=== PATIENT | female | born 1990 | race Two or more races ===

== ENCOUNTER 2019-07-18 00:31 | Emergency (ER) | payer SELFPAY ==
[2019-07-18 01:22] LABS: ABSOLUTE MONOCYTES (AUTO) 0.1 10^3/uL (0.1-1.4); ABSOLUTE NEUT (AUTO) 4.8 10^3/uL (1.7-8.2); BASOPHILS % (AUTO) 0.5 % (0-2); EOSINOPHILS % (AUTO) 0.8 % (0-6); HEMATOCRIT 39.3 % (36.0-47.0); HEMOGLOBIN 13.7 g/dL (12.0-15.5); LYMPHOCYTES % (AUTO) 16.9 % (13-45); MEAN CORPUSCULAR HEMOGLOBIN 29.4 pg (27.0-33.4); MEAN CORPUSCULAR HGB CONC 34.9 g/dL (32.0-36.0); MEAN CORPUSCULAR VOLUME 84 fl (80-97); MONOCYTES % (AUTO) 1.3 % (3-13); PLATELET COUNT 237 10^3/uL (150-450); RED BLOOD COUNT 4.65 10^6/uL (3.72-5.28); RED CELL DISTRIBUTION WIDTH 12.2 % (11.5-14.0); SEGMENTED NEUTROPHILS % (AUTO) 80.5 % (42-78); TOTAL CELLS COUNTED % (AUTO) 100 %
[2019-07-18 01:41] LABS: ALBUMIN 4.3 g/dL (3.5-5.0); ALKALINE PHOSPHATASE 73 U/L (38-126); ANION GAP 11 (5-19); ASPARTATE AMINO TRANSFERASE 27 U/L (14-36); BILIRUBIN,TOTAL 0.5 mg/dL (0.2-1.3); BLOOD UREA NITROGEN 20 mg/dL (7-20); CALCIUM 9.7 mg/dL (8.4-10.2); CARBON DIOXIDE 25 mmol/L (22-30); CHLORIDE 103 mmol/L (98-107); GLUCOSE 134 mg/dL (75-110); POTASSIUM 3.8 mmol/L (3.6-5.0); TOTAL PROTEIN 7.1 g/dL (6.3-8.2)
[2019-07-18 04:12] LABS: APPEARANCE,URINE SLIGHTLY-CLOUDY; BILIRUBIN,URINE NEGATIVE (NEGATIVE); COLOR,URINE YELLOW; GLUCOSE, URINE NEGATIVE (NEGATIVE); KETONES,URINE NEGATIVE (NEGATIVE); LEUKOCYTE ESTERASE,URINE TRACE (NEGATIVE); NITRITE,URINE NEGATIVE (NEGATIVE); PROTEIN,URINE NEGATIVE (NEGATIVE); URINE SPECIFIC GRAVITY 1.024
[2019-07-18] MEDS ORDERED: ACETAMINOPHEN 325 MG TABLET PO ONE (04:21)
[2019-07-18 04:30] VITALS: BP 105/68
[2019-07-18 04:50] LABS: A TYPE INFLUENZA AG NEGATIVE (NEGATIVE); B INFLUENZA AG NEGATIVE (NEGATIVE)
[2019-07-18] MEDS ORDERED: IBUPROFEN 600 MG TABLET PO ONE (06:28)
[2019-07-18] MEDS ORDERED: CEPHALEXIN 500 MG CAPSULE PO ONE (06:28)
--- NOTE | 2019-07-18 13:18 | ER Document Report ---
Entered by HARPAL COPE SCRIBE 07/18/19 0618 Acting as scribe for:ANTELMO MCMAHON MD ED General - General Chief Complaint: Pain All Over Stated Complaint: PAIN ALL OVER Time Seen by Provider: 07/18/19 06:15 Mode of Arrival: Ambulatory Information source: Patient Notes: This 29 year old female patient presents to the ED today with complaints of sudden onset shakes and chills that began around 12:00 AM this morning after getting off work. Patient states "it feels like my hips are being pushed together", making it hard to walk to her car. Patient states that she was fine all day while at work and went out to eat afterwards when the symptoms just hit her. Patient states that she took 2 ASA at work and then drove home when she started to feel nauseous and dizzy so she decided to come to the ED. Patient reports shortness of breath, headache, and x2 episodes of vomiting upon arrival to the ED. Patient denies burning with urination, cough, or abdominal pain. 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 - Related Data Allergies/Adverse Reactions: No Known Allergies Allergy (Verified 07/18/19 00:53) Past Medical History - General Information source: Patient - Social History Smoking Status: Never Smoker Cigarette use (# per day): No Chew tobacco use (# tins/day): No Smoking Education Provided: No Frequency of alcohol use: None Drug Abuse: None Occupation: Stamp Press Operator/Behavioral Health Case Manager Lives with: Parents Family History: Reviewed & Not Pertinent Patient has suicidal ideation: No Patient has homicidal ideation: No Review of Systems - Review of Systems Constitutional: See HPI, Chills EENT: No symptoms reported Cardiovascular: See HPI, Dizziness Respiratory: See HPI, Short of breath. denies: Cough Gastrointestinal: See HPI, Nausea, Vomiting. denies: Abdominal pain Genitourinary: See HPI. denies: Burning Female Genitourinary: No symptoms reported Musculoskeletal: No symptoms reported Skin: No symptoms reported Hematologic/Lymphatic: No symptoms reported Neurological/Psychological: See HPI, Headaches -: Yes All other systems reviewed and negative Physical Exam - Vital signs Vitals: Temp Pulse Resp BP Pulse Ox 100.5 F H 132 H 22 H 148/63 H 100 07/18/19 00:35 07/18/19 00:35 07/18/19 00:35 07/18/19 00:35 07/18/19 00:35 - General General appearance: Alert - HEENT Head: Normocephalic, Atraumatic Eyes: Normal Pupils: PERRL Tympanic membrane: Other - Occluded with soft cerumen - Respiratory Respiratory status: No respiratory distress Chest status: Nontender Breath sounds: Normal Chest palpation: Normal - Cardiovascular Rhythm: Regular Heart sounds: Normal auscultation Murmur: No - Abdominal Inspection: Normal Distension: No distension Bowel sounds: Normal - Active bowel sounds Tenderness: Nontender - Abdomen soft. Pelvis nontender with palpation Organomegaly: No organomegaly - Back Back: Normal, Nontender - Extremities General upper extremity: Normal inspection General lower extremity: Normal inspection - Neurological Neuro grossly intact: Yes - Psychological Associated symptoms: Normal affect, Normal mood - Skin Skin Temperature: Warm Skin Moisture: Dry Skin Color: Normal Course - Vital Signs Vital signs: Temp Pulse Resp BP Pulse Ox 99.1 F 95 16 105/68 100 07/18/19 06:50 07/18/19 06:50 07/18/19 06:50 07/18/19 06:50 07/18/19 06:50 - Laboratory Result Diagrams: 07/18/19 00:55 07/18/19 00:55 Laboratory results interpreted by me: 07/18/19 07/18/19 07/18/19 00:55 00:55 03:56 [place] % (Auto) 1.3 L Seg Neutrophils % 80.5 H Glucose 134 H Urine Urobilinogen 2.0 H Ur Leukocyte Esterase TRACE H Discharge - Discharge Clinical Impression: Viral syndrome Urinary tract infection Qualifiers: Urinary tract infection type: site unspecified Hematuria presence: with hematuria Qualified Code(s): N39.0 - Urinary tract infection, site not specified; R31.9 - Hematuria, unspecified Condition: Stable Disposition: HOME, SELF-CARE Additional Instructions: Viral Syndrome: The physician has diagnosed a viral infection. Viruses not only cause "colds," but can cause many different symptoms including generalized aching, fe desmond, headache, cough, diarrhea, nausea, vomiting, and fatigue. The treatment, for the most part, is simply relief of symptoms. This means that antibiotics are usually not given. Rest, fluids, pain medications and, occasionally, medication for the specific symptoms that are most bothersome will be prescribed. Use good handwashing to avoid passing the virus to others. Shared toys should be cleaned with disinfectant. Clean the toilets, sinks, and counter surfaces in bathrooms. Launder clothing in hot water. Contact the physician if you develop any new or unusual symptoms such as severe headache, stiff neck, high fever, chest pain, productive cough, or shortness of breath. You should be rechecked if you don't see marked improvement within seven to 10 days. Urinary Tract Infection: Your evaluation suggests that you have a urinary tract infection. This is due to germs growing in the bladder. This is a common problem. This infection usually responds quickly to antibiotics. Your antibiotic should be taken exactly as prescribed. Drink plenty of fluids -- three to four quarts a day. Certain urine infections require a culture. If the doctor obtained a culture, the results will be back in two days. You should call to see if a change in treatment is needed. A repeat urinalysis after you finish treatment is often recommended. The physician will let you know if further testing is required. Call the doctor if you develop fever, chills, flank pain, inability to urinate, or blood in the urine. Take the medication as prescribed for the urinary tract infection. Drink lots of fluids throughout the day in the evening for the next few days. Take Tylenol 1000 mg every 4 hours and ibuprofen 600 mg every 6 hours for pain and fever. Get plenty of sleep and plenty of rest. Follow-up with a local medical doctor if not improving. RETURN TO THE EMERGENCY ROOM IF ANY NEW OR WORSENING SYMPTOMS. Prescriptions: Cephalexin Monohydrate [Keflex 500 mg Capsule] 500 mg PO TID #15 capsule Scribe Attestation: 07/18/19 06:29 I personally performed the services described in the documentation, reviewed and edited the documentation which was dictated to the scribe in my presence, and it accurately records my words and actions. I personally performed the services described in the documentation, reviewed and edited the documentation which was dictated to the scribe in my presence, and it accurately records my words and actions.
== END 2019-07-18 06:50 | disposition home or self-care (01) ==
LOC: ER 00:31
DX: N39.0 Urinary tract infection, site not specified (principal); R31.9 Hematuria, unspecified; B34.9 Viral infection, unspecified; R25.1 Tremor, unspecified; R42 Dizziness and giddiness; R11.2 Nausea with vomiting, unspecified; R06.02 Shortness of breath; R51 Headache
CPT/HCPCS: 36415; 80053; 81001; 81025; 85025; 87086; 87804; 99283